=== PATIENT | female | born 1980 | race Hispanic/Latino ===

== ENCOUNTER 2020-05-21 15:07 | Emergency (ER) | payer OTHER ==
[~2020-05-21] VITALS: Ht 160 cm; Wt 70.3 kg
[2020-05-21] MEDS ORDERED: ONDANSETRON HCL INJ 2MG/ML 2ML 2 MG/ML VIAL IV STA (15:52)
[2020-05-21] MEDS ORDERED: KETOROLAC TROMETHAMINE 30 MG/ML VIAL IV STA (15:52)
[2020-05-21] MEDS ORDERED: SODIUM CHLORIDE 0.9% 1000ML 1,000 ML IV STA ×2 (15:52→18:08)
[2020-05-21] MEDS ORDERED: SODIUM CHLORIDE FLUSH 10 ML SYR INJ PRN (16:00)
--- NOTE | 2020-05-21 16:23 | Emergency Department Note ---
History of Present Illnes History of Present Illness Chief Complaint: ruq/epigastric pain History of Present Illness This is a 40 year old female. was doing well prior to this. then epigastric/ruq pain. same as biliary colic. Historian: Patient Arrival Mode: Car History limited by: condition of the patient (normal ) Fisher Eel Required: No Onset (how long ago): hour(s) (12) Location: ruq/epigastric Quality: sharp Radiation: Reports non-radiation Severity: moderate Onset quality: gradual Duration (how long): hour(s) (12) Timing of current episode: constant Context: Denies recent illness, Denies recent surgery, Denies recent immobilization, Denies recent travel, Denies trauma/injury, Denies new medications, Denies hx of DVT/PE, Denies non-compliance w/ medications Relieving factors: none Exacerbating factors: eating, movement Associated symptoms: Reports nausea/vomiting Treatments prior to arrival: none Past Medical/Family History Physician Review I have reviewed the patient's past medical and family history. Any updates have been documented here. Past Medical History Recent Fever: No Clinical Suspicion of Infectio: No New/Unexplained Change in Ment: No Other Medical History: +biliary colic Past Surgical History: None Social History Smoking Cessation: Never Smoker Counseling Performed: No Alcohol Use: Social Any Illegal Drug Use: No TB Exposure/Symptoms: No Physically hurt or threatened: No Family History Family history of heart diseas: No Other Any Pre-Existing Lines (PICC,: No Is patient up to date on immun: No Review of Systems Review of Systems Constitutional: Reports no symptoms EENTM: Reports no symptoms Cardiovascular: Reports no symptoms Respiratory: Reports no symptoms Gastrointestinal: Reports as per HPI, Reports abdominal pain, Reports nausea, Reports vomiting Genitourinary: Reports no symptoms Musculoskeletal: Reports no symptoms Integumentary: Reports no symptoms Neurological: Reports no symptoms Psychological: Reports no symptoms Endocrine: Reports no symptoms Hematological/Lymphatic: Reports no symptoms Review of other systems: All other systems negative Physical Exam Related Data Vital signs reviewed: Yes Physical Exam CONSTITUTIONAL Constitutional: Present well-developed, Present well-nourished HENT HENT: Present normocephalic, Present atraumatic, Present oropharynx clear/moist, Present nose normal HENT L/R: Present left ext ear normal, Present right ext ear normal EYES Eyes: Reports PERRL, Reports conjunctivae normal NECK Neck: Present ROM normal, Present supple PULMONARY Pulmonary: Present effort normal, Present breath sounds normal CARDIOVASCULAR Cardiovascular: Present regular rhythm, Present heart sounds normal, Present intact distal pulses, Present capillary refill normal, Present normal rate GASTROINTESTINAL Abdominal: Present soft, Present bowel sounds normal, Present tender (ruq/epigastric); Absent guarding, Absent mass, Absent rebound GENITOURINARY Genitourinary: Present exam deferred SKIN Skin: Present warm, Present dry MUSCULOSKELETAL Musculoskeletal: Present ROM normal NEUROLOGICAL Neurological: Present alert, Present oriented x 3, Present no gross motor or sensory deficits PSYCHOLOGICAL Psychological: Present mood/affect normal, Present judgement normal Results Laboratory Lab results reviewed: Yes (cbc normal, cmp normal except k=3.4, lft normal except alt 294, ast 301, ggt 338, t obi =2.9, ua ketone=trace, pro=30) Imaging Imaging results reviewed: Yes Impressions [place] [id number] Patient Name: RIMA WHITFIELD MR #: [id number] : 1980 Age/Sex: 40/F Req #: [id number] Adm Physician: Ordered by: JASIEL ELISE Report #: [id number] Location: [facility] Room/Bed: Procedure: [id number] HOPD/US GALL BLADDER-HOPD Exam Date: 05/21/20 Exam Time: 1732 REPORT STATUS: Signed EXAM: Right Upper Quadrant Ultrasound INDICATION: ^pain ^[id number] ^[id number] COMPARISON: None. TECHNIQUE: Transverse and longitudinal images of the right upper abdomen were obtained. FINDINGS: Liver: Size: 15.4 cm in the right midclavicular line, Normal Appearance: Increased echogenicity, slightly lobular contour Mass: No focal masses Gallbladder: Stones/Sludge: There is gallbladder sludge. Wall: 0.3 cm Appearance: No pericholecystic fluid or hydrops. Sonographic Cook's Sign: Negative Bile Ducts: Intrahepatic Ducts: No dilatation Extrahepatic Ducts: Common bile duct measures 0.4 cm, no dilatation Pancreas: Visualized portions of the pancreatic head, neck and proximal body are normal. Right Kidney: Size: 12.9 cm Echogenicity: Normal Parenchymal thickness: Normal Collecting system: No hydronephrosis Stones: None Cyst/Mass: None Vessels: Aorta: Visualized portions are normal Inferior Vena Cava: Visualized portions are normal Main Portal Vein: 1.0 cm, normal size with hepatopetal flow. Free Fluid: No ascites or pleural effusion IMPRESSION: Gallbladder sludge with no acute findings. Diffuse hepatic steatosis without focal mass. Signed by: Kalpesh Moss MD on 05/21/2020 5:38 PM Dictated By: KALPESH MOSS MD 37 Transcribed By: FELIPE on 05/21/201737 COPY TO: JASIEL ELISE~ Assessment & Plan Medical Decision Making MDM take rxed drugs f/u gi and surgery Reassessment Reassessment symptoms resolved s/p meds Assessment & Plan Final Impression: (1) Biliary colic (2) Gall bladder disease (3) Nausea & vomiting (4) Dehydration Depart Disposition: HOME, SELF-[facility] Meds Active Scripts Ketorolac Tromethamine (TORADOL) 10 Mg Tablet, 10 MG PO Q6H PRN for MODERATE PAIN (4-6), #20 TAB 1 Refill Prov:JASIEL ELISE 05/21/20 Ondansetron (ONDANSETRON ODT) 8 Mg Tab.rapdis, 8 MG PO Q6H PRN for NAUSEA AND VOMITING, #20 TAB 1 Refill Prov:JASIEL ELISE 05/21/20 Medications in the ED Sodium Chloride 10 ml PRN PRN INJ IV SITE FLUSH; Start 05/21/20 at 16:00; Stop 06/20/20 at 15:59 Ondansetron HCl 8 mg NOW STAT IV ; Start 05/21/20 at 15:52; Stop 05/21/20 at 15:53; Status UNV Ketorolac Tromethamine 30 mg ONCE STAT IV ; Start 05/21/20 at 15:52; Stop 05/21/20 at 15:53; Status UNV Sodium Chloride 1,000 ml @ 100 mls/hr Q10H STAT IV ; Start 05/21/20 at 15:52; Stop 05/22/20 at 01:51 JASIEL ELISE May 21, 2020 16:23
--- NOTE | 2020-05-21 17:41 | Diagnostic Imaging Report ---
EXAM: Right Upper Quadrant Ultrasound INDICATION: ^pain ^[id number] ^[id number] COMPARISON: None. TECHNIQUE: Transverse and longitudinal images of the right upper abdomen were obtained. FINDINGS: Liver: Size: 15.4 cm in the right midclavicular line, Normal Appearance: Increased echogenicity, slightly lobular contour Mass: No focal masses Gallbladder: Stones/Sludge: There is gallbladder sludge. Wall: 0.3 cm Appearance: No pericholecystic fluid or hydrops. Sonographic Cook's Sign: Negative Bile Ducts: Intrahepatic Ducts: No dilatation Extrahepatic Ducts: Common bile duct measures 0.4 cm, no dilatation Pancreas: Visualized portions of the pancreatic head, neck and proximal body are normal. Right Kidney: Size: 12.9 cm Echogenicity: Normal Parenchymal thickness: Normal Collecting system: No hydronephrosis Stones: None Cyst/Mass: None Vessels: Aorta: Visualized portions are normal Inferior Vena Cava: Visualized portions are normal Main Portal Vein: 1.0 cm, normal size with hepatopetal flow. Free Fluid: No ascites or pleural effusion IMPRESSION: Gallbladder sludge with no acute findings. Diffuse hepatic steatosis without focal mass. Signed by: Kalpesh Storm MD on 05/21/2020 5:38 PM
[2020-05-21] MEDS ORDERED: ONDANSETRON HCL INJ 2MG/ML 2ML 2 MG/ML VIAL ONE (17:44)
[2020-05-21] MEDS ORDERED: KETOROLAC TROMETHAMINE 30 MG/ML VIAL ONE (17:44)
[2020-05-21] MEDS ORDERED: SODIUM CHLORIDE 0.9% 1000ML 1,000 ML ONE (17:45)
[2020-05-21] MEDS ORDERED: PREDNISONE20 MG PO (19:11)
[2020-05-21] MEDS ORDERED: ONDANSETRON ODT8 MG PO (19:11)
[2020-05-21] MEDS ORDERED: KETOROLAC TROME10 MG PO (19:16)
[2020-05-21 19:47] VITALS: BP 114/79
== END 2020-05-21 19:48 | disposition home or self-care (01) ==
LOC: FSED 15:07
DX: R10.13 Epigastric pain (principal); R10.11 Right upper quadrant pain; R11.2 Nausea with vomiting, unspecified; K80.50 Calculus of bile duct without cholangitis or cholecystitis without obstruction; K82.9 Disease of gallbladder, unspecified
CPT/HCPCS: 76705; 80048; 80076; 81003; 81025; 85025; 96374; 96376; 99283; J1885; J2405; J7030